=== PATIENT | female | born 1990 | race Two or more races ===

== ENCOUNTER 2017-10-30 20:53 | Emergency (ER) | payer MEDICAID ==
--- NOTE | 2017-10-30 22:54 | ED Physician Chart ---
ED Chief Complaint/HPI - Patient Information Date Seen:: 10/30/17 Time Seen:: 22:00 Chief Complaint:: abdominal pain History of Present Illness:: location: abdomen quality: sharp pain severity: moderate duration; less than one hour context: pt reports sudden onset right lower quadrant and pelvic pain and left lower pelvic pain. vomiting x 1 and some mild nausea initially. says pain was 10/10 then while waiting. says pain spontaneously reduced to 3/10 without meds. no vaginal bleeding, no hematuria. no fever. no hematochezia. no flank pain. no fever. no rash. no trauma. mod factors: none assoc s/s: none PSH: x 2. most recent 2 years ago. Allergies:: Allergies Allergy/AdvReac Type Severity Reaction Status Date / Time No Known Allergies Allergy Verified 10/30/17 21:25 Vitals:: Vital Signs - 8 hr 10/30/17 21:15 Temp 98 F HR 90 RR 18 BP 116/62 O2 Sat % 96 Review:: Nurse's Note Reviewed ED Review of Systems - Review of Systems General/Constitutional: No fever, No chills, No weight loss, No weakness, No diaphoresis, No edema, No loss of appetite Skin: No skin lesions, No rash, No bruising Head: No headache, No light-headedness Eyes: No loss of vision, No pain, No diplopia ENT: No earache, No nasal drainage, No sore throat, No tinnitus Neck: No neck pain, No swelling, No thyromegaly, No stiffness, No mass noted Cardio Vascular: No chest pain, No palpitations, No PND, No orthopnea, No edema Pulmonary: No SOB, No cough, No sputum, No wheezing GI: Nausea, Vomiting, No diarrhea, Pain, No melena, No hematochezia, No constipation, No hematemesis G/U: No dysuria, No frequency, No hematuria Spoke Maker: No vaginal discharge, No abnormal vaginal bleed, No contraction Musculoskeletal: No bone or joint pain, No back pain, No muscle pain Endocrine: No polyuria, No polydipsia Psychiatric: No prior psych history, No depression, No anxiety, No suicidal ideation Hematopoietic: No bruising, No lymphadenopathy Allergic/Immuno: No urticaria, No angioedema Neurological: No syncope, No focal symptoms, No weakness, No paresthesia, No headache, No seizure, No dizziness, No confusion, No vertigo ED Past Medical History - Past Medical History Past Medical History: No significant medical hx Family History: None Social History: Non Smoker, No Alcohol, No Drug Use, Surgical History: Psychiatricy History: None Medication: None Family Medical History - Family Member Father Hx Family Hypertension: Yes Mother History Unknown: Yes Ethnicity: Living Status: Still Living Hx Family Cancer: No Hx Family Coronary Artery Disease: No Hx Family Congestive Heart Failure: No Hx Family Hypertension: No Hx Family Stroke: No Hx Family Diabetes: Yes Hx Family Seizures: No Hx Family Dementia: No Hx Family AIDS: No Hx Family HIV: No Hx Family COPD: No Hx Family Hepatitis: No Hx Family Psychiatric Problems: No Hx Family Tuberculosis: No ED Physical Exam - Physical Examination General/Constitutional: Awake, Well-developed, well-nourished, Alert, No distress, GCS 15, Non-toxic appearing, Ambulatory Head: Atraumatic Eyes: Lids, conjuctiva normal, PERRL, EOMI Skin: Nl inspection, No rash, No skin lesions, No ecchymosis, Well hydrated, No lymphadenopathy ENMT: External ears, nose nl, Nasal exam nl, Lips, teeth, gums nl Neck: Nontender, Full ROM w/o pain, No JVD, No nuchal rigidity, No bruit, No mass, No stridor Respiratory: Nl effort/Exclusion, Clear to Auscultation, No Wheeze/Rhonchi/Rales Cardio Vascular: RRR, No murmur, gallop, rubs, NL S1 S2 GI: No tenderness/rebounding/guarding (mild right lower > left lower quadrant pelvic pain. no rebound, no guarding, normal bowel sounds all quadrants. no peritoneal signs. no jar tenderness), No organomegaly, Normal BS's, Nondistended , No mass/bruits, No McBurney tenderness : No CVA tenderness Extremities: No tenderness or effusion, Full ROM, normal strength in all extremities, No edema, Normal digits & nails Neuro/Psych: Alert/oriented, Normal sensory exam, Normal motor strength Misc: Normal back, No paraspinal tenderness ED Labs/Radiology/EKG Results - Lab Results Results: Laboratory Tests 10/30/17 10/30/17 10/30/17 22:30 22:30 23:15 WBC 8.9 RBC 4.53 Hgb 13.0 Hct 39.0 L MCV 86.1 MCH 28.7 MCHC Differential 33.3 RDW 12.4 Plt Count 369 MPV 7.1 Neutrophils % 60.4 Lymphocytes % 30.6 Monocytes % 7.4 Eosinophils % 0.9 Basophils % 0.7 Sodium Potassium Chloride Carbon Dioxide Anion Gap BUN Creatinine Est GFR ( Amer) Est GFR (Non-Af Amer) BUN/Creatinine Ratio Glucose Calcium Total Bilirubin AST ALT Alkaline Phosphatase Total Protein Albumin Globulin Albumin/Globulin Ratio Urine Source CLEAN C Urine Color ORANGE Urine Clarity CLEAR Urine pH 7.5 Ur Specific [place] 1.010 Urine Protein NEGATIVE Urine Glucose (UA) NEGATIVE Urine Ketones NEGATIVE Urine Blood NEGATIVE Urine Nitrate POSITIVE H Urine Bilirubin NEGATIVE Urine Urobilinogen 0.2 Ur Leukocyte Esterase NEGATIVE Urine RBC 0-2 Urine WBC 0-2 Ur Epithelial Cells FEW Urine Bacteria FEW Urine Test NEGATIVE 10/30/17 23:15 WBC RBC Hgb Hct MCV MCH MCHC Differential RDW Plt Count MPV Neutrophils % Lymphocytes % Monocytes % Eosinophils % Basophils % Sodium 134 L Potassium 3.6 Chloride 103 Carbon Dioxide 26.3 Anion Gap 8.3 BUN 13 Creatinine 1.1 Est GFR ( Amer) > 60.0 Est GFR (Non-Af Amer) > 60.0 BUN/Creatinine Ratio 11.8 Glucose 90 Calcium 9.5 Total Bilirubin 0.2 L AST 15 ALT 7 Alkaline Phosphatase 68 Total Protein 7.4 Albumin 4.1 Globulin 3.3 Albumin/Globulin Ratio 1.2 Urine Source Urine Color Urine Clarity Urine pH Ur Specific [place] Urine Protein Urine Glucose (UA) Urine Ketones Urine Blood Urine Nitrate Urine Bilirubin Urine Urobilinogen Ur Leukocyte Esterase Urine RBC Urine WBC Ur Epithelial Cells Urine Bacteria Urine Test - Radiology Results Results: ultrasound some free fluid in pelvis no acute abnormalities of pelvis organs ovary, uterus, adnexa no acute appendicitis ER READ ED Assessment - Assessment General Assessment: pt in stable condition while in ER. ED Septic Shock - . Is Septic Shock (SBP<90, OR Lactate>4 mmol\L) present?: No - <6hrs of presentation: Vital Signs: Vital Signs - 8 hr 10/30/17 21:15 Temp 98 F HR 90 RR 18 BP 116/62 O2 Sat % 96 ED Reassessment (Disposition) - Reassessment Reassessment:: pt in stable condition while in ER. spontaneous reduction in abdominal pain. Reassessment Condition:: Improved - Diagnosis Diagnosis:: ruptured ovarian cyst, improved - Aftercare/Follow up Instructions Aftercare/Follow-Up Instructions:: Refer to Discharge Instructions Notes:: go to your physician for recheck tomorrow return to ER for any worsening - Patient Disposition Discharge/Transfer:: Home Condition at Disposition:: Stable, Improved
[2017-10-30 23:11] LABS: URINE MICROSCOPIC INDICATED? YES; URINE SOURCE CLEAN C
[2017-10-30 23:18] LABS: URINE BILIRUBIN NEGATIVE (NEGATIVE); URINE BLOOD NEGATIVE (NEGATIVE); URINE GLUCOSE (UA) NEGATIVE (NEGATIVE); URINE KETONE NEGATIVE (NEGATIVE); URINE LEUKOCYTE ESTERASE NEGATIVE (NEGATIVE); URINE NITRATE POSITIVE (NEGATIVE); URINE PH 7.5 (4.6 - 8.0); URINE PROTEIN NEGATIVE (NEGATIVE); URINE UROBILINOGEN 0.2 E.U./dL (0.2 - 1.0)
[2017-10-30 23:21] LABS: URINE CLARITY CLEAR (CLEAR); URINE COLOR ORANGE
[2017-10-30 23:23] LABS: % BASOPHILS 0.7 % (0.0-2.0); % EOSINOPHILS 0.9 % (0.0-5.0); % LYMPHOCYTES 30.6 % (20.0-50.0); % MONOCYTES 7.4 % (2.0-10.0); % NEUTROPHILS 60.4 % (40.0-80.0); BASOPHILE ABSOLUTE 0.1 Th/cumm (0-0.2); EOSINOPHILE ABSOLUTE 0.1 Th/cmm (0.1-0.4); LYMPHOCYTE ABSOLUTE 2.7 Th/cmm (1.5-3.0); MEAN CELL VOLUME 86.1 fl (81-100); MEAN CORPUSCULAR HEMOGLOBIN 28.7 pg (27.0-31.0); MEAN CORPUSCULAR HGB CONC 33.3 pg (28.0-36.0); MEAN PLATELET VOLUME 7.1 fl; MONOCYTE ABSOLUTE 0.7 Th/cmm (0.3-1.0); NEUTROPHILE ABSOLUTE 5.3 Th/cmm (1.8-8.0); PLATELET COUNT 369 Th/cmm (150-400); RED BLOOD COUNT 4.53 Mil/cmm (3.80-5.10); RED CELL DISTRIBUTION WIDTH 12.4 % (11.5-20.0); WHITE BLOOD COUNT 8.9 Th/cmm (4.8-10.8)
[2017-10-30 23:35] LABS: URINE BACTERIA FEW /hpf (NONE SEEN); URINE EPITHELIAL CELLS FEW /lpf (FEW); URINE RBC 0-2 /hpf (0-5); URINE WBC 0-2 /hpf (0-5)
[2017-10-30 23:42] LABS: ALB/GLOB RATIO 1.2 (1.0-1.8); ALBUMIN 4.1 gm/dL (3.7-5.3); ALKALINE PHOSPHATASE 68 U/L (34-104); ANION GAP 8.3 (7.0-16.0); BILIRUBIN,TOTAL 0.2 mg/dL (0.3-1.0); BUN - UREA NITROGEN 13 mg/dL (7-25); CALCIUM SERUM 9.5 mg/dL (8.6-10.3); CARBON DIOXIDE 26.3 mEq/L (21.0-31.0); CHLORIDE 103 mEq/L (98-107); CREATININE - SERUM 1.1 mg/dL (0.6-1.2); GFR AFRICAN-AMERICAN > 60.0 ml/min (>90); GFR NON AFRICAN-AMERICAN > 60.0 ml/min; GLUCOSE 90 mg/dL (70-105); POTASSIUM SERUM 3.6 mEq/L (3.5-5.1); SGOT 15 U/L (13-39); SGPT/ALT 7 U/L (7-52); SODIUM SERUM 134 mEq/L (136-145); TOTAL PROTEIN,SERUM 7.4 gm/dL (6.0-8.3)
--- NOTE | 2017-10-31 07:55 | Diagnostic Imaging Report ---
Pelvic ultrasound HISTORY: Pain Transabdominal and transvaginal sonographic technique utilized. There is a normal uterine size (7.9 x 4.2 x 4.7 cm). Somewhat heterogeneous myometrium. No focal lesions are seen. There is an approximate 7 mm sonolucent focus within the region of the cervix most likely related to a nabothian cyst. The endometrium measures 8 mm thickness. The right ovary measures 3.9 x 1.7 x 2.1 cm. Cysts less than 1.0 cm are noted. The left ovary measures 2.4 x 1.9 x 2.3 cm. Cysts a 7.0 cm are seen. A small amount of fluid seen in the cul-de-sac region of the pelvis. IMPRESSION: 1. Findings consistent with bilateral ovarian cystic/follicular changes 2. Small amount of fluid in the cul-de-sac region of the pelvis. The finding may be on a physiologic basis and should be correlated clinically and with menstrual status. If symptoms persist a follow-up ultrasound exam in one week may be helpful. 3. Small sonolucent focus in the region of the cervix consistent with a nabothian cyst. 4. Endometrial thickness equals 8 mm
== END 2017-10-31 01:40 | disposition home or self-care (01) ==
LOC: ER 20:53
DX: N83.292 Other ovarian cyst, left side (principal)
CPT/HCPCS: 99285; 96372; 76856; 36415; 85025; 87086; 81001; 81025; 80053; J1885